=== PATIENT | female | born 1965 | race Caucasian/White ===

== ENCOUNTER → 2017-07-03 | Outpatient (CLI) | payer OTHER ==
--- NOTE | 2017-07-03 13:36 | US ---
EXAMINATION TYPE: Ultrasound MSK right ankle, peroneal tendons DATE OF EXAM: 07/03/2017 COMPARISON: NONE CLINICAL HISTORY: 52-year-old female with intermittent pain for 6 months, possible twisting injury. E valuate for S86.311A RT PERONEAL TENDON TEAR. Technique: Multiple sonographic images of the lateral right ankle for assessment of the peroneal tend ons. FINDINGS: There is normal course and fibrillar architecture of the peroneus brevis and longus. The peroneus sheeba efe is followed to the hindfoot where it dives down to the plantar aspect. The peroneus brevis is fol lowed to its attachment at the base of the fifth metatarsal. No discrete tear is identified. No signi ficant tenosynovial fluid. Additional scanning is performed at the site of patient directed pain which is localized to the dorsa l aspect of the fourth TMT joint. No significant synovial proliferation, joint effusion, or capsular distention is seen here. IMPRESSION: 1. The peroneal tendons appear sonographically unremarkable. 2. Patient's pain seems to localize to the dorsal fourth TMT joint. No specific abnormality is seen h ere. Correlate with radiographic findings.
== END | disposition home or self-care (01) ==
LOC: RADUSWWP 12:35
PROVIDERS: ATTEND Podiatrist Foot & Ankle Surgery
DX: S86.311A Strain of muscle(s) and tendon(s) of peroneal muscle group at lower leg level, right leg, initial encounter (principal)

== ENCOUNTER → 2020-09-03 | Outpatient (CLI) | payer BC ==
--- NOTE | 2020-09-05 11:43 | MR ---
EXAMINATION TYPE: MR shoulder LT wo con DATE OF EXAM: 09/03/2020 COMPARISON: None HISTORY: Left shoulder pain for 2 months TECHNIQUE: Multiplanar, multisequence imaging of the left shoulder is performed without contrast. FINDINGS: There is a small joint effusion. Small amount fluid surrounds the distal long head of the b iceps tendon. Rotator Cuff: Small amount of fluid is adjacent to the subscapularis tendon. Acromioclavicular Joint: Minimal inferior spurring is present. Glenohumeral Joint: Narrowed. There appears be some loss of the articular cartilage. Osteoarthritic d egenerative changes likely present. Labrum: Not well visualized. The anterior recess appears somewhat prominent. Glenohumeral ligament an terior to the glenoid appears somewhat prominent. Biceps Tendon: The long head of biceps is in normal location within bicipital groove. Bone marrow signal: No focal abnormal marrow signal is appreciated. Other: No additional significant abnormality is appreciated. IMPRESSION: 1. Small joint effusion. 2. Osteoarthritic degenerative change. 3. No rotator cuff tear evident. 4. Some mild tendinosis of the subscapularis tendon is not excluded.
== END | disposition home or self-care (01) ==
LOC: RADMRIMAIN 19:45
PROVIDERS: ATTEND Orthopaedic Surgery
DX: M19.012 Primary osteoarthritis, left shoulder (principal)

== ENCOUNTER → 2020-09-13 | Outpatient (CLI) | payer BC ==
[2020-09-13 08:50] LABS: Basophils # (A) 0.1 k/uL (0-0.2); Basophils % (A) 1 %; Eosinophils # (A) 1.4 k/uL (0-0.7); Eosinophils % (A) 15 %; HCT 43.9 % (34.0-46.0); HGB 14.4 gm/dL (11.4-16.0); Lymphocytes # (A) 3.6 k/uL (1.0-4.8); Lymphocytes % (A) 37 %; MCH 30.1 pg (25.0-35.0); MCHC 32.9 g/dL (31.0-37.0); MCV 91.6 fL (80.0-100.0); Mean Platelet Volume 7.6; Monocytes # (A) 0.4 k/uL (0-1.0); Monocytes % (A) 4 %; Neutrophils % (A) 41 %; Platelet Count 270 k/uL (150-450); RBC 4.79 m/uL (3.80-5.40); RDW 12.6 % (11.5-15.5); WBC 9.8 k/uL (3.8-10.6)
[2020-09-13 09:05] LABS: Potassium 5.4 mmol/L (3.5-5.1)
== END | disposition home or self-care (01) ==
LOC: LABWHC1 07:56
PROVIDERS: ATTEND Orthopaedic Surgery
DX: Z01.818 Encounter for other preprocedural examination (principal); M75.42 Impingement syndrome of left shoulder
CPT/HCPCS: 36415; 80051; 85025; 93005

== ENCOUNTER → 2020-09-21 | Day surgery (SDC) | payer BC ==
[2020-09-17 08:59] VITALS: BMI 26.5
--- NOTE | 2020-09-20 08:51 | HP ---
HISTORY AND PHYSICAL CHIEF COMPLAINT: Left shoulder pain. HISTORY OF PRESENT ILLNESS: The patient is a 55-year-old, right-hand dominant, retired female who presents with persistent/progressive left shoulder pain for the past several months. She notes continued pain with overhead use and at night. She has tried therapy in addition to home exercises and an injection and medications without much relief. She rates her pain 8/10. PAST MEDICAL HISTORY: Significant for hypertension. PAST SURGICAL HISTORY: Significant right shoulder arthroscopic subacromial decompression. CURRENT MEDICATIONS: Amlodipine. ALLERGIES: She denies drug allergies. FAMILY HISTORY: Significant for cancer, diabetes, and hypertension. SOCIAL HISTORY: Negative for current tobacco or alcohol use. REVIEW OF SYSTEMS: Sixteen-point review of systems is otherwise reviewed and is noncontributory. PHYSICAL EXAMINATION: On examination, the patient is approximately 5 feet 10 inches, 185 pounds of mesomorphic habitus. HEENT exam is nonfocal. Neck is supple. On examination of her left shoulder, she is tender about the anterior subacromial space. She has moderate subacromial crepitus. Active range of motion forward elevation 110 degrees, external rotation with arm at side 15 degrees, internal rotation to L5. Passively I am able to forward elevate her to 110 degrees. Motor strength is 5 minus over 5 for abduction and external rotation. Impingement test is positive. Her distal neurovascular exam appears intact in the left upper extremity. MRI report left shoulder shows evidence of a mild glenohumeral joint effusion. Rotator cuff tendinosis is noted. IMPRESSION: 1. Left shoulder impingement. 2. Left shoulder adhesive capsulitis/bursitis. RECOMMENDATIONS: I talked to the patient at length regarding her condition and treatment options. At this point, her symptoms are worsening despite conservative measures. After thorough discussion, she opts to proceed with surgery. We will plan to proceed with arthroscopic evaluation with probable subacromial decompression in addition to manipulation under anesthesia. We will likely perform that as an outpatient procedure. MMODL / IJN: [id number] /
[~2020-09-21] MED LIST: DEXAMETHASONE SOD PHOSPHATE 4 MG/ML 1 ML VIAL IV ONE; DEXAMETHASONE SOD PHOSPHATE 4 MG/ML 1 ML VIAL ONE; EPINEPHrine (PF) 1 ML in SODIUM CHLORIDE 0.9% IRRIGATIO 3,000 ML IRRIGATION ONE; GLYCOPYRROLATE 0.2 MG/ML 2 ML VIAL ONE; HYDROmorphone 0.5 MG/0.5 ML SYRINGE IVP PRN; LACTATED RINGERS 1,000 ML IV ONE; LACTATED RINGERS 1,000 ML IV SCH; LIDOCAINE 1% (10MG/ML) FOR IV START INTRADERMA ONE; MIDAZOLAM 2 MG/2 ML VIAL IV ONE; MIDAZOLAM 2 MG/2 ML VIAL IV PRN; MIDAZOLAM 2 MG/2 ML VIAL ONE; NEOSTIGMINE 1 MG/ML 10 ML VIAL ONE; ONDANSETRON 4 MG/2 ML VIAL IVP ONE; PHENYLEPHRINE-0.9% NACL SYG 1,000 MCG/10 ML SYRINGE ONE; PROPOFOL 10 MG/ML 20 ML VIAL IV ONE; ROCURONIUM 10 MG/ML (10 ML VIAL) IV ONE; ROPIVACAINE 5 MG/ML 30 ML VIAL ONE; SCOPOLAMINE 1.5MG/72HR PATCH TRANSDERM ONE; SUCCINYLCHOLINE CHLORIDE 100 MG/5 ML SYR IV ONE; fentaNYL (PF) 50 MCG/ML 2 ML AMP ONE
--- NOTE | 2020-09-21 08:28 | P.ANPRN ---
Procedure Note - Anesthesia - Nerve Block Performed Left Interscalene Single Time Out Performed: Yes Date of Procedure: 09/21/20 Procedure Start Time: :14 Procedure Stop Time: :22 Location of Patient: PreOp Indication: Acute Post-Operative Pain, Dx/Pain Location, Requested by Surgeon Specifically requested for management of pain by : Isacc Pierre Sedation Type: Sedate with meaningful contact maintained Preparation: Sterile Prep Position: Supine Catheter: None Needle Types: Facet Needle Gauge: 20 Ultrasound used to visualize needle placement: Yes Ultrasound used to observe medication spread: Yes Injectate: 0.5% Ropivacaine (see comment for volume) Blood Aspirated: No Pain Paresthesia on Injection Noted: No Resistance on Injection: Normal Image Stored and Saved: Yes Events: Uneventful and Well Tolerated (20cc 0.5% Bupivacaine ith 4mg Dexamethasone)
--- NOTE | 2020-09-21 09:14 | P.OP ---
Date of Procedure: 09/21/20 Preoperative Diagnosis: Left shoulder adhesive capsulitis/impingement/acromioclavicular joint synovitis Postoperative Diagnosis: Same Procedure(s) Performed: Left shoulder arthroscopic subacromial decompression/partial synovectomy/distal clavicular resection/manipulation under anesthesia Anesthesia: veronica LITTLE Surgeon: Isacc Pierre Recovery Advocate #1: Pranay Ceron Estimated Blood Loss (ml): 10 Pathology: none sent Condition: stable Disposition: PACU Indications for Procedure: The patient's a 55-year-old female presents with progressive left shoulder pain and stiffness despite conservative measures. A discussion of the risks and benefits of operative intervention versus continued conservative measures was made with patient. She opted proceed with surgery. Operative risks include infection, neurovascular injury, development of blood clots, possible incomplete resolution of symptoms, possible recurrence of stiffness and need for subsequent procedures was discussed. Informed consent was obtained. Operative Findings: As below Description of Procedure: The patient was brought to the operating room, and after induction of general anesthesia was placed in a beachchair position. A preoperative interscalene block was placed for postoperative analgesia. I examined the left shoulder. There was significant block to passive motion in all planes. Gentle manipulation was then performed first with the arm at side obtaining full external rotation and then full forward elevation. Moderate adhesions were encountered. The left upper extremity was prepped and draped in normal fashion. The bony outlines the acromion, distal clavicle, and coracoid process were outlined with a skin marker. The glenohumeral joint was inflated with 50 mL of saline utilizing a spinal needle from posterior approach. A posterior portal was made through a 5 mm skin incision 1 cm medial and inferior to the posterior lateral border time. A blunt trocar was used to easily into the joint. Diagnostic arthroscopy was performed. An anterior portal was made just lateral to the coracoid process entering the joint above the subscapularis tendon. The subscapularis tendon appeared to be intact. Anterior labrum was intact. There was significant synovitis involving the rotator interval that was debrided with a motorized shaver. The inferior recess was inspected. The posterior labrum was intact. The intra-articular portion the biceps showed some synovitis however no lemuel tear. The biceps anchor appear to be intact as well. On inspection the rotator cuff, no significant full-thickness tear was noted. The arthroscope was placed in the subacromial space. A lateral portal was made 2 centimeters inferior to the anterior lateral border of the acromion. The soft tissue on the undersurface of the acromion was debrided with a motorized shaver and electrocautery clearly defining the anterior medial and lateral borders as well as the distal clavicle. An anterior inferior acromioplasty was performed with a motorized adriana starting anterolateral, then extending this posteriorly, then extending this medially. I converted to a flat acromion and this was verified in the posterior and lateral viewing portals. There was significant synovitis involving the acromioclavicular joint. The distal 4 mm of clavicle was resected with a motorized bur. Attention was then paid towards the rotator cuff. Appear to be intact and the bursal surface. There was significant bursal thickening that was debrided with a motorized shaver. The arthroscope was then removed. The portals were closed with simple 3-0 nylon suture. The patient was then awoken from general anesthesia and transferred to recovery room in good condition. Blood loss was estimated at 10 mL. No complications were incurred. Sponge and needle counts were correct in the case. Art FITCH assisted and the major components of the case to include arm positioning, decompression, and distal clavicular resection.
[2020-09-21 09:19] VITALS: TEMP 97
[2020-09-21 10:08] VITALS: RESP 16
[2020-09-21 10:41] VITALS: BP 133/88; PULSE 79
== END | disposition home or self-care (01) ==
LOC: OR 06:14
PROVIDERS: ATTEND Orthopaedic Surgery
DX: M75.02 Adhesive capsulitis of left shoulder (principal); M65.812 Other synovitis and tenosynovitis, left shoulder; I10 Essential (primary) hypertension; M19.90 Unspecified osteoarthritis, unspecified site; Z83.3 Family history of diabetes mellitus; Z82.49 Family history of ischemic heart disease and other diseases of the circulatory system; Z80.9 Family history of malignant neoplasm, unspecified; Z79.899 Other long term (current) drug therapy
CPT/HCPCS: 29823; 29824; 64415; 76942; J2250; J1100; J2710; J0690; J2405; J0171; J3010; J2795; J2370; J0330; J2704

== ENCOUNTER 2021-06-08 09:15 | Day surgery (SDC) | payer BC, OTHER ==
[2021-06-02 14:42] VITALS: BMI 25.8
[~2021-06-08 09:15] MED LIST changes: -DEXAMETHASONE SOD PHOSPHATE 4 MG/ML 1 ML VIAL IV ONE; -DEXAMETHASONE SOD PHOSPHATE 4 MG/ML 1 ML VIAL ONE; -EPINEPHrine (PF) 1 ML in SODIUM CHLORIDE 0.9% IRRIGATIO 3,000 ML IRRIGATION ONE; -GLYCOPYRROLATE 0.2 MG/ML 2 ML VIAL ONE; -HYDROmorphone 0.5 MG/0.5 ML SYRINGE IVP PRN; -LACTATED RINGERS 1,000 ML IV ONE; -LIDOCAINE 1% (10MG/ML) FOR IV START INTRADERMA ONE; +LIDOCAINE 1% (10MG/ML) FOR IV START INTRADERMA PRN; -MIDAZOLAM 2 MG/2 ML VIAL IV ONE; -MIDAZOLAM 2 MG/2 ML VIAL IV PRN; -MIDAZOLAM 2 MG/2 ML VIAL ONE; -NEOSTIGMINE 1 MG/ML 10 ML VIAL ONE; -ONDANSETRON 4 MG/2 ML VIAL IVP ONE; -PHENYLEPHRINE-0.9% NACL SYG 1,000 MCG/10 ML SYRINGE ONE; -PROPOFOL 10 MG/ML 20 ML VIAL IV ONE; -ROCURONIUM 10 MG/ML (10 ML VIAL) IV ONE; -ROPIVACAINE 5 MG/ML 30 ML VIAL ONE; -SCOPOLAMINE 1.5MG/72HR PATCH TRANSDERM ONE; -SUCCINYLCHOLINE CHLORIDE 100 MG/5 ML SYR IV ONE; -fentaNYL (PF) 50 MCG/ML 2 ML AMP ONE
[2021-06-08 09:45] VITALS: TEMP 97.5
[2021-06-08] MEDS ORDERED: LIDOCAINE 1% (10MG/ML) FOR IV START SQ ONE (09:50)
[2021-06-08] MEDS ORDERED: GLYCOPYRROLATE 0.2 MG/ML 2 ML VIAL ONE (10:27)
[2021-06-08] MEDS ORDERED: PROPOFOL 10 MG/ML 20 ML VIAL IV ONE (10:27)
[2021-06-08] MEDS ORDERED: LIDOCAINE 1% INJ 10MG/ML (20 ML MDV) ONE (10:27)
--- NOTE | 2021-06-08 11:06 | P.PCN ---
Date of Procedure: 06/08/21 Procedure(s) Performed: BRIEF HISTORY: Patient is a [48]-year-old, pleasant, white female scheduled for an upper endoscopy as a part of evaluation of intermittent dysphagia to solids for the last 20 years duration. Her symptoms have been progressively getting worse and lately has been having dysphagia almost on a daily basis. She is hence scheduled for an upper endoscopy with a possible dilation.. PROCEDURE PERFORMED: Esophagogastroduodenoscopy with dilation and biopsy. PREOPERATIVE DIAGNOSIS: Intermittent dysphagia to solids of several years duration. IV sedation per anesthesia. PROCEDURE: After informed consent was obtained, the patient was brought into the endoscopy unit. IV sedation was administered by Anesthesia under continuous monitoring. Initially the Olympus GIF-140 video endoscope was inserted into the mouth. Esophagus intubated without any difficulty. It was gradually advanced into the stomach and duodenum and carefully examined. The bulb and the second part of the duodenum appeared normal. The scope at this time was withdrawn to the stomach, adequately insufflated with air, and upon careful examination, mucosa of the antrum, body, cardia and the fundus appeared normal. The scope was then withdrawn into the esophagus. The GE junction was located at 39 cm from the incisors. There was a distal esophageal stricture with multiple erosions consistent with LA grade B reflux esophagitis. The esophagus into was dilated using 12 to and 13.5 mm TTS balloon in a sequential fashion. There was a small hiatal hernia noted. The mucosal folds in the mid and distal esophagus appeared slightly thickened suspicious for eosinophilic esophagitis and multiple biopsies were done from this area. The esophagus appeared normal and the patient tolerated the procedure well. IMPRESSION: 1. Distal esophageal stricture status post balloon dilation using 12 and 13.5 mm TTS balloon as described above. 2. Small hiatal hernia. 3. Thickened esophageal folds in the distal esophagus status post multiple biopsies to rule out eosinophilic esophagitis RECOMMENDATIONS: The findings of this examination were discussed with the patient as well as her family. She was advised to be on a clear liquid diet today. Continue with Protonix 40 mg daily and follow with the biopsy results. She'll be seen in office in 3-4 months..
[2021-06-08 11:13] VITALS: BP 131/79; PULSE 79; RESP 16
== END 2021-06-08 11:45 | disposition home or self-care (01) ==
LOC: ORWHC2ENDO 09:15
PROVIDERS: ATTEND Internal Medicine Gastroenterology
DX: K22.2 Esophageal obstruction (principal); K44.9 Diaphragmatic hernia without obstruction or gangrene
CPT/HCPCS: 43239; 43249; J2001; J2704; C1726; 88305